=== PATIENT | male | born 1965 | race Caucasian/White ===

== ENCOUNTER 2024-06-30 16:44 | Inpatient (IN) | payer BC, SELFPAY ==
[2024-06-30] VITALS (11 sets, daily range): BP systolic 112–187; BP diastolic 61–103; BMI 31.9
[2024-06-30 14:21] LABS: % Basophils 0.6 % (0-2); % Eosinophils 2.8 % (0-6); % Immature Granulocytes 0.2 % (0-0.5); % Monocytes 13.1 % (1.7-9.3); % Neutrophils 58.3 % (42.2-75.2); Absolute Eosinophils 0.1 10^3/uL (0-0.7); Absolute Lymphocytes 1.3 10^3/uL (1.2-3.4); Absolute Monocytes 0.7 10^3/uL (0.1-0.6); Absolute Neutrophils 2.9 10^3/uL (1.4-6.5); Hematocrit 44.6 % (39.0-52.0); Hemoglobin 16.2 g/dL (13.0-18.0); Mean Corp Hgb Conc. 36.3 g/dL (33.0-37.0); Mean Corpuscular Hgb 31.3 pg (27.0-31.0); Mean Corpuscular Volume 86.3 fL (80.0-94.0); Mean Platelet Volume 10.7 fL (7.4-10.4); Nucleated Red Blood Cells % 0 % (-); Platelet Count 161 10^3/uL (130-400); Red Blood Cell Count 5.17 10^6/uL (4.70-6.10); Red Cell Dist. Width 12.2 % (11.5-14.5)
[2024-06-30 14:44] LABS: ALT (SGPT) 23 U/L (0-50); AST (SGOT) 21 U/L (17-59); Albumin 4.5 g/dl (3.5-5.0); Alkaline Phosphatase 58 U/L (38-126); Blood Urea Nitrogen 18 mg/dl (9-20); Calcium 9.5 mg/dl (8.4-10.2); Carbon Dioxide 22 mmol/L (22-30); Chloride 103 mmol/L (98-107); Glucose 123 mg/dl (70-99); Sodium 140 mmol/L (135-145); Total Bilirubin 1.4 mg/dl (0.2-1.3); Total Protein 6.9 g/dl (6.3-8.2); eGFR > 60.00
[2024-06-30 14:51] LABS: Troponin I < 0.012 ng/ml
--- NOTE | 2024-06-30 15:36 | ED.GENMED ---
History of Present Illness
General
Chief Complaint: Chest Pain
Source: patient
Time Seen by Provider: 06/30/24 15:11
History of Present Illness
History of Present Illness:
59-year-old male presents to the emergency room complaining of chest pain. Patient has been having chest pain for the past few weeks intermittently. He has been taking nitro with improvement. Patient has a significant cardiac history with
multiple stents and bypass surgery. Patient's also had stents in his lower extremities. Patient again having chest pain again at 7 AM. He took a nitro which did not help. Patient is highly concerned that he is having a cardiac event. Patient
was told that he had a vessel that was likely to become occluded on his last cardiac catheterization in August. Currently the patient describes his discomfort as a pressure/tightness that existed in his upper chest and radiates to his neck. He
denies diaphoresis or shortness of breath.
Past History
Past History
ED Past Medical History: CAD and LA
Social History
Tobacco: Smoker
Alcohol: None
Drug: None
Personal:
Living: with family
Employment: Employed
Family History
Family History: CAD
Phy Exam
Physical Exam
Physical Exam:
General: Awake, Alert, Oriented X3. Anxious but not unstable
Vitals: unremarkable
Head: Atraumatic
Eyes: Pupils equal, EOMI
Throat: Airway intact, no exudates
Neck: Trachea midline
Lungs: Clear and equal b/l
Heart: Regular rate, no murmurs
Abd: Soft, Nontender, No pulsatile mass
Neuro: Nonfocal
Skin: Warm, dry, no rash
Extremities: pulses equal b/l, no edema
Scores
Heart Score for Chest Pain Patients
STEMI patient?: No
History: Highly Suspicious
ECG: Nonspecific Repolarization
Age: >45 - <65 years
Risk Factors: >/= 3 Risk Factors or History of CAD
Troponin: </= Normal Limit
Heart Score for Chest Pain Patients: 6
Heart Score Risk: 20.3% MACE over next 6 weeks
Course
Orders/Labs/Results
Orders:
Orders
06/30/24 Lunch
NPO
Allow oral meds: Yes
Allow clear liquids: No
06/30/24 13:59
Electrocardiogram (*1) Urgent
Reason for Study: Chest Pain
EKG- Treatment ONCE
06/30/24 14:14
Complete Blood Count/With Diff Urgent
Comprehensive Metabolic Panel Urgent
Troponin I Urgent
06/30/24 15:31
Aspirin Chewable [Low Strength Aspirin] 243 mg PO NOW STA
Nitroglycerin Sublingual [Nitrostat (Sublingual)] 0.4 mg SL NOW STA
06/30/24 15:32
Electrocardiogram (*1) Stat
Reason for Study: Other
Other Reason for Exam: chest pain
EKG- Treatment ONCE
CR Chest - 2 Views Urgent
Comment:
Reason For Exam: chest pain
06/30/24 16:09
Admit/Transfer Patient As Directed
Co-Sign Provider:
Level of Care: Inpatient admission
Assign to:: IVU
Physician / Group: Dr. Medina
Diagnosis: Chest pain
Reason for Hospitalization: chest pain
Expected length of stay greater than two midnights?: Yes
ELOS- Estimated Length of Stay in days: 3
I certify the patient meets the requirements for IP care: Yes
06/30/24 16:22
Heparin 1000 Units/500 ml [Heparin] 1,000 units in 500 ml .ROUTE .STK-MED
Heparin Sodium,Porcine/Ns/Pf [Heparin 2000 Units/1000 ml] 2,000 unit in 1,000 ml .ROUTE .STK-MED
Lidocaine HCl/Pf [Xylocaine-Mpf 1% Vial] 50 mg .ROUTE .STK-MED ONE
Verapamil Injectable [Isoptin/Verapamil Injection] 5 mg .ROUTE .STK-MED ONE
06/30/24 16:23
Nitroglycerin [Tridil] 1,500 mcg .ROUTE .STK-MED ONE
06/30/24 16:26
Fentanyl Citrate/Pf [Sublimaze] 100 mcg .ROUTE .STK-MED ONE
Heparin 10,000 units .ROUTE .STK-MED ONE
Midazolam HCl [Versed] 2 mg .ROUTE .STK-MED ONE
06/30/24 18:11
Electrocardiogram (*1) Q6H
Reason for Study: Chest Pain
Comment: at admission and Q3H for total of 3, to be done with each troponin
Rosuvastatin Calcium [Crestor] 40 mg PO QPM
06/30/24 18:11
Echo 2D MMode Color/Doppler Routine
Reason for Study: chest pain
Case Management Consult ONCE
Case Management Consult: Discharge Planning
Activity As Directed
Activity Level: Bedrest
INT (Intravenous Needle Therapy) As Directed
Comment: maintain peripheral IV access
Intake/ Output As Directed
Frequency: Per unit guidelines
Vital Signs As Directed
Frequency: q4h
Weight As Directed
Frequency: Once
DX Deep Vein Thrombosis Video Routine
06/30/24 19:45
Glycohemoglobin (HgbA1c) Routine
Troponin I Q6H
Comment: at admit & Q3H for 3 total including ED draws, obtain ECG with each level
06/30/24 20:00
Carvedilol [Coreg] 12.5 mg PO BID
Ranolazine Extended Release [Ranexa Extended Release] 500 mg PO BID
07/01/24 00:11
Electrocardiogram (*1) Q6H
Reason for Study: Chest Pain
Comment: at admission and Q3H for total of 3, to be done with each troponin
07/01/24 06:00
Cardiovascular Evaluation IN AM
Complete Blood Count/No Diff IN AM
07/01/24 06:11
Electrocardiogram (*1) Q6H
Reason for Study: Chest Pain
Comment: at admission and Q3H for total of 3, to be done with each troponin
07/01/24 08:00
Aspirin Low Dose EC [Aspir Low (Enteric Coated)] 81 mg PO DAILY
Clopidogrel Bisulfate [Plavix] 75 mg PO DAILY
ISOSORBIDE MONOnitrate ER [Imdur (Extended Release)] 30 mg PO DAILY
Pantoprazole [Protonix] 40 mg PO DAILY
07/01/24 18:00
Enoxaparin Sodium [Lovenox] 40 mg SC QPM
Abnormal Lab Results
06/30/24
14:14
MCH 31.3 H pg
(27.0-31.0)
MPV 10.7 H fL
(7.4-10.4)
Absolute Monos (auto) 0.7 H 10^3/uL
(0.1-0.6)
Monocytes % 13.1 H %
(1.7-9.3)
Glucose 123 H mg/dl
(70-99)
Total Bilirubin 1.4 H mg/dl
(0.2-1.3)
06/30/24 14:14
06/30/24 14:14
Vital Signs
Initial and Last Documented VS:
Initial Vital Signs
Temp Pulse Resp BP Pulse Ox
98.9 F 63 16 187/103 96
06/30/24 14:05 06/30/24 14:05 06/30/24 14:05 06/30/24 14:05 06/30/24 14:05
Last Documented Vital Signs
Temp Pulse Resp BP Pulse Ox
97.5 F 60 20 129/83 95
06/30/24 19:32 06/30/24 21:15 06/30/24 18:32 06/30/24 21:00 06/30/24 21:15
MDM/Problems Addressed
Differential Diagnosis Includes:
Acute coronary syndrome, NSTEMI, pericarditis, chest wall pain
MDM/Problems Addressed:
Patient presents with chest pain that he feels is reminiscent of anginal pain he is had in the past. Fortunately he has no acute ischemic changes on his EKG though there are some nonspecific ST changes. Patient's first troponin is undetectable and
this is several hours after the onset of this episode of pain. No significant change in his pain with nitro. Urgent cardiac consultation with requested by Dr. Medina. She came immediately to the emergency room to evaluate the patient.
Decision made to take the patient to cardiac catheterization for definitive diagnostics.
Chronic conditions affecting care: HTN and CAD
*Pulse Oximetry
Patient hypoxic: no
*EKG
Interpreted by ED Provider?: Yes
Interpretation: normal
Heart Rate: 60
Rate: normal
Rhythm: other (Atrial paced)
[place]: normal axis
Interval: normal interval
QRS Pattern: normal QRS
Ischemia: non-specific ST changes
*[place] Interpretation
Rate: normal
Interpretation: abnormal
Rhythm: other (Atrial paced)
*Critical Care Note
Total Time (30-74mins, 75-104mins- exclusive of procedures): 32 min
comment:
Critical care statement: A total of 32 minutes of critical care time was provided for this patient. This includes management of unstable vital signs, evaluation of the patient at bedside, reviewing the patient's pertinent medical records, discussion
with consultants, review of old EKGs and review of pertinent medical records. This time with separate from time utilized to perform the aforementioned documented procedures
ED Attending Note
-
Portions of this chart may have been created with voice recognition software.� Occasional wrong word or��sound alike� substitutions may have occurred due to the inherent limitations of voice recognition software.
Discharge Plan
Departure
Patient Disposition: Admit
Date of Disposition: 06/30/24
Time of Disposition: 16:15
Presentation/result/management discussed w/ accepting MD/DO: Dr Medina
Condition: Fair
Discharge Problem:
Chest pain, Acute coronary syndromes
Interventions
Interventions:
*Risk Screen - Suicide Last Done: 06/30/24 14:05
*General Assessment Last Done: 06/30/24 14:05
*Neglect/Abuse Screening Last Done: 06/30/24 14:05
ED- Fall Risk Assessment Last Done: 06/30/24 16:03
*ED COVID-19 Vaccine History Last Done: 06/30/24 16:03
*Nursing Disposition Last Done: 06/30/24 16:43
ED- Cardiac Assessment Last Done: 06/30/24 16:03
Discharge Date and Time
Discharge Date/Time: 06/30/24 16:44
--- NOTE | 2024-06-30 16:08 | HPS.HSE ---
Family Physician
-
Family Physician: Ami Correa
Chief Complaint
-
Chest pain
History of Present Illness
59-year-old gentleman with a past medical history of extensive CAD status post multiple PCI's and CABG in 2020 at [facility], hypertension, hyperlipidemia, GERD and obesity presents for evaluation of chest pain. Patient says for the last 2
months he has had increasing episodes of angina. He saw Gage Gaitan his natural sciences department chair on Thursday who recommended catheterization for further evaluation which was planned for 07/04/2024 at [place]. However over the last 2 days he has had increasing
episodes of chest pain described as a tightness and pressure across his chest rating to his neck at times to his right arm. He took a nitroglycerin yesterday with good relief. He began having pain around 7 AM, was visiting a family member in the
ICU and finally took a nitroglycerin midday with no relief so presented for evaluation in the ED. Pain is a 5 out of 10. Pain is currently present. He reports medical occasion adherence. He denies any history of GI bleeding, peptic ulcer disease.
Medical History
Past Medical History
Past Medical History: Reports CAD, GERD, HTN and Hypercholesterolemia
Past Surgical History: Reports Cardiac (In 2019, pacemaker placement)
Social History
Tobacco: Former Smoker
Alcohol: Occasional
Living: With Family
Family History
Family History: CAD (Father )
Allergies / Home Medications
Allergies reflects when Allergies were last updated in [facility].
Home Medications with original date entered in [facility]
Allergy/Medication List:
No known drug allergies
Review of Systems
-
A 12 point ROS was completed and negative except as noted: No
Physical Exam
Vital Signs
Vital Signs
Temp Pulse Resp BP Pulse Ox
98.9 F 67 21 148/80 94
06/30/24 14:05 06/30/24 15:45 06/30/24 15:45 06/30/24 15:02 06/30/24 15:45
Physical Exam
General: Well Developed, Well Nourished and Other (Appears uncomfortable)
HEENT: NormoCephalic
Respiratory: Clear; No Wheezes, Rales or Rhonchi
Cardiac: S1/S2 and Regular Rhythm; No Murmur, Rub, Gallop or Peripheral Edema
GI: Soft, Non Tender, Non Distended and Normal Bowel Sounds; No Tender or Distended
Genito-urinary: Deferred by me
Musculoskeletal: No Clubbing, No Cyanosis and No Edema
Neuro: AO x 3
Laboratory Results
-
06/30/24 14:14
06/30/24 14:14
Laboratory Results
Total Bilirubin 1.4 mg/dl (0.2-1.3) H 06/30/24 14:14
AST 21 U/L (17-59) 06/30/24 14:14
ALT 23 U/L (0-50) 06/30/24 14:14
Alkaline Phosphatase 58 U/L (38-126) 06/30/24 14:14
Troponin I < 0.012 ng/ml 06/30/24 14:14
Data Reviewed
-
Medical Tests (Nuc Med, Echo, EKG etc): Image Personally Visualized and interpreted (Atrial paced V sensed rhythm with nonspecific T wave flattening which is new compared to prior)
Impression/Plan
-
59-year-old gentleman with a past medical history of extensive CAD status post CABG and prior PCI followed by Dr. Gaitan of [place], hypertension, hyperlipidemia, status post permanent pacemaker and GERD who presented for evaluation of crescendo
angina.
ACS: Unstable angina, pattern increasing in frequency and less responsive to nitroglycerin. Plan was for catheterization in [place] on Thursday.
-I discussed this case with Dr. White, will proceed to cardiac catheterization immediately
-Continue to trend troponin
-Continue excellent OMT
-Continue DAPT as patient is on this chronically.
-Update his echo
Hypertension: Chronic, stable
Hyperlipidemia: Chronic, high-dose statin indicated
Obesity: Address as an outpatient, consider GLP-1 agonist
GERD: Continue PPI,chronic
Given the need to go directly to the cardiac catheterization for an stable angina this is a high risk situation. His was at the bedside and provided history. All were involved in medical decision making.
[2024-06-30] MEDS: LOW STRENGTH ASPIRIN 243 MG PO (16:14)
[2024-06-30] MEDS: NITROSTAT (SUBLINGUAL) 0.4 MG SL (16:16)
[2024-06-30 17:47] LABS: ACT-LR - POC 279 Seconds (116-155)
[2024-06-30] MEDS: NSS 1000 IV (18:24)
--- NOTE | 2024-06-30 18:26 | ITS.CL.CATH ---
Family Resource Management Professor - Catheterization
Cardiac Catheterization
Procedure Report:
CARDIAC CATHETERIZATION REPORT
Date of Procedure: 06/30/24
Referring: Dr. Chele Medina
INDICATION: chest pain
PROCEDURE:
1. Left heart catheterization
2. Coronary angiography with bypass graft angiography
3. iFR of LCx
ACCESS:
6 Swazi distal left radial artery
CATHETERS:
1. 6 Swazi JONY
2. 6 Swazi JL4
3. 6 Swazi AR2
4. 6 Swazi Multipurpose
5. 6 Swazi XB3.5 guide
HEMODYNAMIC DATA
LV 104/7 (EDP 14)
AO 113/66 (mean 86)
CORONARY ANGIOGRAPHY
Dominance: right
LM: short vessel without significant disease
LAD: patent proximally with competitive flow in the mid-vessel
LCx: gives rise to a large OM1 and moderate sized OM2. There is a 50% proximal stenosis that was further interrogated with iFR and otherwise diffuse mild disease.
RCA: occluded in the mid-vessel in stent.
BYPASS GRAFT ANGIOGRAPHY
FLEMING-LAD: taken as a pedicle and forms a patent anastomosis with the mid LAD, supplying robust antegrade flow to the apex.
SVG-Diag: patent at aorto-ostium and form a patent anastomosis with the diagonal vessel
SVG-RPDA: patent at aorto-ostium and form a patent anastomosis with the RPDA, suppling flow to the RPL branches. There is mild pinching at the anastomotic site in the antegrade limb of the RPDA but [place] 3 flow distally
iFR of LCx
The decision was made to perform physiologic testing. The diagnostic catheter was removed over a wire and exchanged for a XB3.5 guiding catheter. The guiding catheter was advanced into the ascending aorta and seated in the LMCA. Additional heparin
was given to obtain an ACT greater than 250 seconds. An iFR wire was zeroed outside of the body, then inserted into the guiding sheath. The wire was advanced and the transducer was normalized just outside of the guiding catheter tip. The wire was
advanced into the mid LCx. Three iFR measurements were taken and were negative (0.98). The iFR wire was pulled back and confirmed to normalize to 1.0.
Closure Device: TR band
Radiation (mGy): 972.26
DAP (cm2.Gy): 78.2755
Fluoroscopy time (minutes): 13.2
CONCLUSIONS
1. Obstructive coronary artery disease in a right dominant system status post CABG (FLEMING-LAD, SVG-diag, SVG-RPDA). Newly occluded (since 2022) [place] RCA but with widely patent SVG-RCA. iFR negative proximal LCx. Patent FLEMING-LAD and SVG-diagonal. No
culprit lesion to explain patient's symptoms.
2. Normal LV filling pressure and no aortic stenosis.
RECOMMENDATIONS:
1. Expectant management after cardiac catheterization via left distal radial approach.
2. Consider possible causes/treatment of ANOCA in patient with prior history of suspect coronary vasospasm. Consider CCB if continued symptoms.
3. Aggressive secondary prevention of coronary artery disease with goal LDL<55.
4. Continue current home DAPT regimen with ASA/Plavix.
Copy to: Hernando Gaitan DO
David Milian MD, PhD
[2024-06-30] MEDS: CRESTOR 40 MG PO (20:08)
[2024-06-30] MEDS: COREG 12.5 MG PO (20:08)
[2024-06-30] MEDS: RANEXA EXTENDED RELEASE 500 MG PO (20:08)
[2024-06-30 20:16] LABS: Troponin I < 0.012 ng/ml
--- NOTE | 2024-06-30 21:53 | PTCARENOTE ---
Pt received post cardiac cath done via left hand access (snuff box) . Radial band removed per protocol without problem. Pt denies any discomfort. Telemetry shows sinus rhythm. Troponins negative X 2, Dr. Milian aware, further troponins DC'd.
[2024-07-01] VITALS (42 sets, daily range): BP systolic 113–161; BP diastolic 59–104
[2024-07-01] MEDS: TYLENOL 650 MG PO (02:13)
--- NOTE | 2024-07-01 02:15 | PTCARENOTE ---
Addendum entered by Alissa Scherer RN 07/01/24 06:30:
0300 pt rang call lama c/o R sided CP, tightness, and neck pain. Pt diaphoretic. BP 140s/80s. labs drawn, EKG completed. Vipin BROWN notified and at bedside to assess pt. 2L NC applied. Morphine ordered and given.
03:42 cardene gtt @ 2.5 mg/hr started, orders in to give norvasc @ 0600 and stop cardene gtt @0700.
0430 pt sitting at side of bed c/o sharp, upper abdominal pain. Abdomen distended and hard. Pt belching. Annabelle notified and order in for maalox. Went back in to check pt and pt states he is feeling better after belching more and raising HOB. Pt
laying back in bed. maalox not given yet.
0600 norvasc given see MAR. pt denies complaints of any pain or discomfort.
Original Note:
pt awake c/o headache, R shoulder blade pain and feeling hot. VSS. afebrile. p px 95% RA. A Paced on monitor, HR 60s. Pt denies SOB or CP at this time. Tylenol given.
[2024-07-01] MEDS: MORPHINE SULFATE 2 MG IV ×2 (03:25→09:51)
[2024-07-01 03:32] LABS: Hematocrit 42.7 % (39.0-52.0); Hemoglobin 15.1 g/dL (13.0-18.0); Mean Corp Hgb Conc. 35.4 g/dL (33.0-37.0); Mean Corpuscular Hgb 30.9 pg (27.0-31.0); Mean Corpuscular Volume 87.5 fL (80.0-94.0); Mean Platelet Volume 11.2 fL (7.4-10.4); Platelet Count 151 10^3/uL (130-400); Red Blood Cell Count 4.88 10^6/uL (4.70-6.10); Red Cell Dist. Width 12.3 % (11.5-14.5)
[2024-07-01] MEDS: CARDENE 200 IV (03:42)
[2024-07-01 04:00] LABS: HDL Cholesterol 32 mg/dl; LDL Cholesterol, Calculated 79 mg/dl; Total Cholesterol 137 mg/dl (50-199); Triglyceride 131 mg/dl (10-149); Very Low Density Lipoprotein 26 mg/dl (0-30)
--- NOTE | 2024-07-01 04:09 | W.PN.UPDATE ---
Update Note
Progress Note Update
-at 3:15 am came in to see pt urgently for 6-7/10 CP after walking to the bathroom. It feels like 'stabbing' and radiating to his neck. Pt is diaphoretic and looks moderately uncomfortable. CP is not reproducible with palpation and no exacerbating
or alleviating factors. SBP 140s-150s, pOx 97% on 2L, a-paced @ 60 bpm. ECG without acute changes. Trops were neg x2. Cath with patent grafts, possible coronary spasm was suggested.
-gave 2 mg iv Morphine and CP significantly improved, but not resolved. Pt looks more comfortable. Trop is pending. Started iv Cardene for htn and possible spasm. Plan to discontinue iv Cardene at 7am after giving Norvasc at 6am.
-reviewed above with Dr. Albright
[2024-07-01 04:11] LABS: Troponin I 0.034 ng/ml
[2024-07-01 04:49] LABS: Hepatitis C Antibody Negative (Negative)
[2024-07-01] MEDS: NORVASC 2.5 MG PO (06:04)
[2024-07-01] MEDS: COREG 12.5 MG PO (09:13)
[2024-07-01] MEDS: IMDUR (EXTENDED RELEASE) 15 MG PO ×2 (09:13→20:17)
[2024-07-01] MEDS: PLAVIX 75 MG PO (09:15)
[2024-07-01] MEDS: PROTONIX 40 MG PO (09:15)
[2024-07-01] MEDS: ASPIR LOW (ENTERIC COATED) 81 MG PO (09:15)
[2024-07-01] MEDS: RANEXA EXTENDED RELEASE 500 MG PO ×2 (09:15→20:18)
[2024-07-01] MEDS: NORVASC PO (09:17)
[2024-07-01] MEDS: MAALOX PLUS 1 TABLET PO (09:28)
[2024-07-01 09:40] LABS: Glycohemoglobin (HgbA1c) 6.8 % (4.0-5.6)
--- NOTE | 2024-07-01 10:02 | W.PN.CD ---
Today's Communication / Plan
-
trend troponin to peak/stability; trend CP with addition of amlodipine / blood pressure management
Impression / Plan
-
59 year old man with history of CAD s/p multiple PCI to RCA and CABGx3 (2020, [facility], FLEMING-LAD, SVG-RPDA, SVG-Diag), who presents with chest pain concerning for ACS, status post urgent cath 06/30/24 without culprit lesion. Had recurrent chest
pain overnight concerning for possible coronary vasospasm.
# Chest pain - non-obstructive disease on cath suggests this to be ANOCA/MINOCA versus non-cardiac chest pain
- he has had several months of increasing angina with with and without exertion, sometimes responsive to nitro
- initial troponin negative, ECG with TW flattening but no overt ischemic changes
- urgent cath 06/30/24 with patent FLEMING-LAD, patent SVG-Diag, 50% LCx that was iFR negative, and newly occluded (compared to 2022 cath) [place] RCA but patent SVG-RPDA --> no culprit lesion to explain symptoms; LVEDP 12
- recurrent CP overnight and this morning responsive to NTG, without ECG changes
- mild troponin elevation this AM (0.034), will continue to trend to peak/stability
- continue aggressive antianginal regimen: coreg 12.5 BID, imdur 30, ranexa 500 BID
- adding norvasc for possible component of vasospasm / microvascular dysfunction (of note: cath in 2016 patient had presumed significant coronary vasospasm intraprocedurally)
- pantoprazole / Maalox for possible GI component
- update TTE
- consider cMRI
# Hypertension: Chronic, stable, needs better control, trend with above interventions, will add ACEi next if not controlled
# Hyperlipidemia: Chronic, high-dose statin indicated, LDL here 79, will add ezetimibe, ultimate goal <55 in outpatient setting
# Obesity: Address as an outpatient, consider GLP-1 agonist
# GERD: Continue PPI,chronic
Subjective: having ongoing chest pain while lying in bed
Physical Exam
Vital Signs/Labs
Vital Signs
Temp Pulse Resp BP Pulse Ox
36.9 C 60 20 150/91 97
07/01/24 07:36 07/01/24 08:45 07/01/24 07:36 07/01/24 09:13 07/01/24 09:00
06/30/24 07/01/24 07/02/24
06:59 06:59 06:59
Actual Weight 109.8 kg
07/01/24 03:03
06/30/24 14:14
Triglycerides 131 mg/dl (10-149) 07/01/24 03:03
LDL Cholesterol, Calc 79 mg/dl 07/01/24 03:03
VLDL Cholesterol, Calc 26 mg/dl (0-30) 07/01/24 03:03
HDL Cholesterol 32 mg/dl 07/01/24 03:03
LAB Results
06/30/24 06/30/24 06/30/24
14:14 17:31 19:45
Troponin I < 0.012 Cancelled < 0.012
07/01/24
03:10
Troponin I 0.034 D
Physical Exam
Constitutional: Distress (lying in bed, endorsing ongoing chest pain)
Cardiovascular: Rhythm & rate is regular, Pedal edema is absent, JVD pressure is normal, Systolic murmur absent and Diastolic murmur absent
Respiratory: Respiratory effort normal, Lungs clear to auscul., Wheeze Absent, Crackles Absent and Rhonchi Absent
Neuro/Psych: Alert, Oriented and AO x 3
Other: Skin and Cath Site (cdi)
Data Reviewed
-
Date of Service: July 01, 2024
Medical Decision Making: External Notes, Reviewed Test Results, Tests Ordered and Test Interpretation
EKG: Tracing Personally Visualized and interpreted
X-Ray/CT/US/MRI/NUC/PET: Report Reviewed by me
Labs: Labs Reviewed by me and Labs Ordered by me
[2024-07-01] MEDS: NORVASC 7.5 MG PO (10:16)
--- NOTE | 2024-07-01 10:56 | CM ---
Chart reviewed. Patient is independent of ADLS, lives with his in a 2 [address], 2 NICK, 0 DME. Plan is for the patient to return home. CM to follow
[2024-07-01 12:53] LABS: Troponin I 0.158 ng/ml
[2024-07-01] MEDS: CRESTOR 40 MG PO (17:39)
[2024-07-01] MEDS: LOVENOX 40 MG SC (17:39)
--- NOTE | 2024-07-01 18:03 | PTCARENOTE ---
Pt reported 4/10 right sided chest discomfort after being up in his room to the bathroom and then eating breakfast. BP 161/90. notified, ECG done (no change per ). Pt given an additional 7.5mgs norvasc. Chest discomfort
completely relieved 20 minutes after morphine which he took with reluctance. Pt noted a few twinges of more discomfort throughout the day after minimal activity. Plan to improve BP control. Telemetry shows sinus rhythm with some atrial pacing and
rare PVC's, SBP's @150.
[2024-07-01 18:39] LABS: Troponin I 0.239 ng/ml
[2024-07-01] MEDS: COREG 25 MG PO (20:18)
[2024-07-02 00:18] LABS: Troponin I 0.238 ng/ml
--- NOTE | 2024-07-02 01:52 | PTCARENOTE ---
Pt. received at change of shift, NSR on tele with occasional Apacing and PVCs. Pt. took one full lap around unit which he stated gave him 4/10 CP and slight SOB. Upon resting in bed, pt. reported relief symptoms with no further intervention. L
hand cath site dry/intact with no hematoma noted. 2345 Trop collected and sent, levels peaked, no further troponins ordered at this time. Pt. verbalizes understanding to ring call lama if CP returns. Ambulating to bathroom independently without
difficulty. Can make needs known. Call lama within reach.
[2024-07-02] MEDS: TYLENOL 650 MG PO (04:00)
[2024-07-02 04:04] VITALS: BMI 32.8
[2024-07-02 04:25] VITALS: BP 127/73
[2024-07-02 04:39] LABS: Hematocrit 41.1 % (39.0-52.0); Hemoglobin 14.6 g/dL (13.0-18.0); Mean Corp Hgb Conc. 35.5 g/dL (33.0-37.0); Mean Corpuscular Hgb 31.4 pg (27.0-31.0); Mean Corpuscular Volume 88.4 fL (80.0-94.0); Mean Platelet Volume 11.4 fL (7.4-10.4); Platelet Count 136 10^3/uL (130-400); Red Blood Cell Count 4.65 10^6/uL (4.70-6.10); Red Cell Dist. Width 12.3 % (11.5-14.5); White Blood Cell Count 6.5 10^3/uL (4.8-10.8)
[2024-07-02 04:58] LABS: Blood Urea Nitrogen 16 mg/dl (9-20); Calcium 9.1 mg/dl (8.4-10.2); Carbon Dioxide 24 mmol/L (22-30); Chloride 101 mmol/L (98-107); Estimated Creatinine Clearance 94 ml/min; Glucose 112 mg/dl (70-99); Potassium 4.4 mmol/L (3.5-5.1); Sodium 137 mmol/L (135-145); eGFR > 60.00
[2024-07-02 07:59] VITALS: BP 130/71
[2024-07-02] MEDS: FLUSH (NSS) 1 FLUSH IV (08:23)
[2024-07-02] MEDS: PLAVIX 75 MG PO (08:24)
[2024-07-02] MEDS: PROTONIX 40 MG PO (08:24)
[2024-07-02] MEDS: COREG 25 MG PO (08:24)
[2024-07-02] MEDS: NORVASC 10 MG PO (08:24)
[2024-07-02] MEDS: IMDUR (EXTENDED RELEASE) 15 MG PO (08:24)
[2024-07-02] MEDS: RANEXA EXTENDED RELEASE 500 MG PO (08:24)
[2024-07-02] MEDS: ZETIA 10 MG PO (08:25)
[2024-07-02] MEDS: ASPIR LOW (ENTERIC COATED) 81 MG PO (08:25)
--- NOTE | 2024-07-02 09:09 | W.PN.CD ---
Addendum entered and electronically signed by HANY Francis 07/11/24 13:29:
Per CDI query, patient with possible MINOCA. Patient with CAD with no culprit lesion (details as noted on cath), but mildly elevated troponin noted s/p cath, as well as reports of chest discomfort as detailed. Vasospasm or endothelial dysfunction
both possibilities (versus non cardiac CP). May have further testing as OP with primary customer contact representative if appropriate.
Addendum entered and electronically signed by Chele Medina MD 07/02/24 11:33:
I saw and examined the patient.
The MONITORING SPECIALIST's note was reviewed and I agree with the note.
Comment: He is feeling improved from arrival with no rest pain. Still some exertional angina, but this has be present for quite some time. on exam he is comfortable without complaint. He has an rrr no m/r/g Cath site from the dorsum of the left
hand is normal. His lungs are CTA. He has a the slightest troponin leak after cath. Tele with a rare pvc. I suspect his symptoms could be due to vasospasm vs endothelial dysfunction vs atypical chronic cp. Amlodipine added and will take several
days for full effect. He will keep an eye on his bp. He will continue the remained agressive antiaginal regimen. As symptoms have been present for months, and are improving since admission, no indication for additional urgent evaluation. Follow up
with Dr Gaitan for further work up and evaluation as indicated.
He is concerned about severe episodes, but has not recieved morphine in the last 24 hours and narcotic pain relief is not a good fdc plan. For now we reviewed the appropriate way to take sl ntg and he will not perform any exertional activity
until he sees Dr Gaitan.
Original Note:
Today's Communication / Plan
-
-continue current medicines including amlodipine, which is new, and monitor response
Impression / Plan
-
59 year old man with history of CAD s/p multiple PCI to RCA and CABGx3 (2020, [facility], FLEMING-LAD, SVG-RPDA, SVG-Diag), who presents with chest pain concerning for ACS, status post urgent cath 06/30/24 without culprit lesion. He has had recurrent
chest pain concerning for possible coronary vasospasm.
# Chest pain - non-obstructive disease on cath suggests this to be ANOCA/MINOCA versus non-cardiac chest pain
- he has had several months of increasing angina with with and without exertion, sometimes responsive to nitro
- initial troponin negative, ECG with TW flattening but no overt ischemic changes
- urgent cath 06/30/24 with patent FLEMING-LAD, patent SVG-Diag, 50% LCx that was iFR negative, and newly occluded (compared to 2022 cath) salamatof RCA but patent SVG-RPDA --> no culprit lesion to explain symptoms; LVEDP 12
- he continues to have chest discomfort. He reports it is exertional to me and that if he rests it is okay.
- mild troponin elevation this admit up to 0.329 (peak). Echo 07/01/24: Normal LV size and function with no regional wall motion abnormalities. LV ejection fraction is 60-65% by Henson's method of discs. Mild concentric left ventricular hypertrophy.
Mild mitral regurgitation.
- continue aggressive antianginal regimen: coreg 12.5 BID, imdur 30, ranexa 500 BID
- Norvasc added for possible component of vasospasm / microvascular dysfunction (of note: cath in 2016 patient had presumed significant coronary vasospasm intraprocedurally)
- pantoprazole / Maalox for possible GI component
- consider cMRI
# Hypertension: Chronic- amlodipine added, monitor response- seems improved
# Hyperlipidemia: Chronic, high-dose statin indicated, LDL here 79, ezetimibe added, ultimate goal <55 in outpatient setting
# Obesity: Address as an outpatient, consider GLP-1 agonist
# GERD: Continue PPI,chronic
Subjective:
Patient continues to have chest discomfort with exertion, though it may be a bit better. Okay if he is resting, although he does notice it with stress as well.
Physical Exam
Vital Signs/Labs
Vital Signs
Temp Pulse Resp BP Pulse Ox
98.2 F 60 18 130/71 92
07/02/24 08:08 07/02/24 08:00 07/02/24 08:08 07/02/24 07:59 07/02/24 08:08
07/01/24 07/02/24 07/03/24
06:59 06:59 06:59
Actual Weight 109.8 kg 112.7 kg
07/02/24 04:18
07/02/24 04:18
Triglycerides 131 mg/dl (10-149) 07/01/24 03:03
LDL Cholesterol, Calc 79 mg/dl 07/01/24 03:03
VLDL Cholesterol, Calc 26 mg/dl (0-30) 07/01/24 03:03
HDL Cholesterol 32 mg/dl 07/01/24 03:03
LAB Results
06/30/24 06/30/24 06/30/24
14:14 17:31 19:45
Troponin I < 0.012 Cancelled < 0.012
07/01/24 07/01/24 07/01/24
03:10 12:18 17:57
Troponin I 0.034 D 0.158 H* 0.239 H* D
07/01/24
23:45
Troponin I 0.238 H*
Physical Exam
Constitutional: No acute distress
EENT: Anicteric
Cardiovascular: Rhythm & rate is regular
Respiratory: Respiratory effort normal and Lungs clear to auscul.
Neuro/Psych: AO x 3
Other: Cath Site (left distal cath site stable without hematoma)
Data Reviewed
-
Date of Service: July 02, 2024
Echo: Other (telemetry SR)
Labs: Labs Reviewed by me
--- NOTE | 2024-07-02 09:10 | PTCARENOTE ---
The patient was out walking in the [place]. He stated that he was having that 'feeling again.' He said it wasn't pain but more of a 'dull feeling' in his right chest. He states that its always in his right chest. He states that it does relieve itself
with rest. He states that he is not short of breath. He was NSR on the monitor at that time with occasional a-pacing. His vitals remain stable.
[2024-07-02 11:28] VITALS: BP 115/75
--- NOTE | 2024-07-02 11:51 | W.DS.TRANS ---
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
-
Discharge Instructions:
Discharge Diagnosis/Procedures Procedure: Cardiac catheterization
Diagnosis: coronary artery disease, chest pain,
hypertension, dyslipidemia
Diet Low Cholesterol,Low Fat,2 Gram Sodium
Activity Other activity
Additional Activity see activity restrictions on attached form
Driving Restrictions No driving for 24 hours
Bathing Restrictions OK to Shower
Instructions:
Stand-Alone Forms: DC Instructions- Cath/EP Lab
Changes to Home Medications: Yes
Discharge Medications:
DC Medications w/original date entered in [employer]
aspirin 81 mg tablet,delayed release 81 mg PO DAILY 11/24/13
fish oil-dha-epa 1,200 mg-144 mg-216 mg capsule 1 cap PO BID 11/24/13
nitroglycerin 0.4 mg sublingual tablet 0.4 mg sublingual PRN PRN chest pain / pressure 11/24/13
clopidogrel 75 mg tablet 75 mg PO DAILY #30 tabs 05/19/15
coenzyme Q10 100 mg capsule (CoQ-10) 100 mg PO DAILY 06/30/24
isosorbide mononitrate 30 mg tablet,extended release 24 hr 30 mg PO DAILY 06/30/24
pantoprazole 40 mg tablet,delayed release 40 mg PO DAILY 06/30/24
ranolazine 500 mg tablet,extended release,12 hr 500 mg PO BID 06/30/24
rosuvastatin 40 mg tablet 40 mg PO QPM 06/30/24
amlodipine 10 mg tablet 10 mg PO DAILY #30 tabs 07/02/24
carvedilol 25 mg tablet 25 mg PO BID #60 tabs 07/02/24
ezetimibe 10 mg tablet 10 mg PO DAILY #30 tabs 07/02/24
Home Medication Changes
Increase Coreg, add amlodipine, add ezetimibe
Pending Results: No
--- NOTE | 2024-07-05 08:56 | PN.CDI ---
CDI
- -
CDI:
Physician Documentation Request
Admit Date: [f_Reg Admit Date Time]
Dear Doctor Carol
Please review the following and provide your response in the progress notes.
Clinical Indicators:
The diagnosis of MINOCA was included in the signed Discharge summary.
Additional clinical indicators in the chart include:
PN 07/01 non obstructive disease on cath suggests this to be ANOCA/MINOCA
PN 07/02 ..suspect his symptoms could be due to vasospasm
H&P.. unstable angina
DS .. cardio cath reveled obstructive coronary artery disease.
nonobstructive disease on cath suggests this to be ANOCA/MINOCA
Please indicate in your progress notes if you are in agreement that the above diagnosis is valid for this patient:
____CAD with unstable angina is a valid diagnosis (Please include it in your progress notes)
____CAD with angina and vasospasm is a valid diagnosis
____MINOCA is a valid diagnosis.
____ - Other
____ - Unable to determine
Use of terms such as suspected, likely, concern for, or probable are acceptable for a diagnosis that is being evaluated, monitored or treated as if it exists and can be coded in the inpatient setting, when documented at the time of discharge.
Thank you,
Marylu Evangelista
Rubber Press Operator Inpatient
[f_Mis Current User]
CDI Specialist
Please use your independent medical judgment in providing your response.
== END 2024-07-02 13:58 | disposition home or self-care (01) | DRG 282 ==
LOC: IVU 16:44
PROVIDERS: Emergency Medicine; Nurse Practitioner; Physician Assistant Medical; Student in an Organized Health Care Education/Training Program; ADMITTING PHYSICIAN Internal Medicine Cardiovascular Disease; EMERGENCY PHYSICIAN Emergency Medicine; FAMILY PHYSICIAN Family Medicine
PROC: B211YZZ Fluoroscopy of Multiple Coronary Arteries using Other Contrast (ICD-10-PCS; 2024-06-30)
PROC: 4A033BC Measurement of Arterial Pressure, Coronary, Percutaneous Approach (ICD-10-PCS; 2024-06-30)
PROC: 4A023N7 Measurement of Cardiac Sampling and Pressure, Left Heart, Percutaneous Approach (ICD-10-PCS; 2024-06-30)
PROC: B213YZZ Fluoroscopy of Multiple Coronary Artery Bypass Grafts using Other Contrast (ICD-10-PCS; 2024-06-30)
DX: I21.B Myocardial infarction with coronary microvascular dysfunction (principal); I25.10 Atherosclerotic heart disease of native coronary artery without angina pectoris; E78.00 Pure hypercholesterolemia, unspecified; I10 Essential (primary) hypertension; K21.9 Gastro-esophageal reflux disease without esophagitis; E66.9 Obesity, unspecified; Z95.0 Presence of cardiac pacemaker; Z82.49 Family history of ischemic heart disease and other diseases of the circulatory system; Z79.899 Other long term (current) drug therapy; Z68.32 Body mass index [BMI] 32.0-32.9, adult; Z87.891 Personal history of nicotine dependence; Z95.5 Presence of coronary angioplasty implant and graft; Z79.82 Long term (current) use of aspirin; Z79.02 Long term (current) use of antithrombotics/antiplatelets; Z95.1 Presence of aortocoronary bypass graft
CPT/HCPCS: 71046; 80048; 80053; 80061; 83036; 84484; 85025; 85027; 85347; 86803; 93005; 93306; 93459; 93799; 99291; C1769; C1887; C1894; Q9967